=== PATIENT | female | born 1975 | race Caucasian/White ===

== ENCOUNTER 2019-10-21 11:36 | Outpatient (CLI) | payer OTHER ==
--- NOTE | 2019-10-21 13:37 | MMO ---
Bilateral MAMMO Bilat Screen [facility]. CLINICAL HISTORY: Patient is 44 years old and is seen for screening. The patient has no family history of breast cancer. The patient has no personal history of cancer. VIEWS: The views performed were: bilateral craniocaudal with tomosynthesis and bilateral mediolateral oblique with tomosynthesis. This study has been interpreted with the assistance of computer-aided detection. MAMMOGRAM FINDINGS: The breasts are heterogeneously dense, which could obscure a lesion on mammography. There are benign appearing calcifications seen in the left breast. There are no suspicious masses, suspicious calcifications, or new areas of architectural distortion. IMPRESSION: THERE IS NO MAMMOGRAPHIC EVIDENCE OF MALIGNANCY. A ROUTINE FOLLOW-UP MAMMOGRAM IN 1 YEAR IS RECOMMENDED. THE RESULTS OF THIS EXAM WERE SENT TO THE PATIENT. ACR BI-RADS Category 2 - Benign finding MAMMOGRAPHY NOTE: 1. A negative mammogram report should not delay a biopsy if a dominant of clinically suspicious mass is present. 2. Approximately 10% to 15% of breast cancers are not detected by mammography. 3. Adenosis and dense breasts may obscure an underlying neoplasm. Reported by: NAUN MARES MD Electonically Signed: [id number]
== END 2019-10-21 11:37 | disposition home or self-care (01) ==
LOC: BICMAMMO 11:36
PROVIDERS: ATTEND Physician Assistant
DX: Z12.31 Encounter for screening mammogram for malignant neoplasm of breast (principal)
CPT/HCPCS: 77063; 77067

== ENCOUNTER 2020-12-26 13:08 | Observation (INO) | payer BC ==
[2020-12-26] MEDS ORDERED: Lorazepam 2 MG/ML VIAL ONE (16:12)
[2020-12-26] MEDS ORDERED: Senokot S 8.6-50 MG TAB PO PRN (17:43)
[2020-12-26] MEDS ORDERED: ALPRAZolam 0.25 MG TAB PO PRN (17:47)
--- NOTE | 2020-12-26 18:07 | PDOC.HHP ---
Hospitalist ZAYNAB Anxiety/Stress/OD History of Present Illness: 45 yr old female with history of HTN, anxiety was taken to [place] ED today for an intentional OD of her RX medications. She reports taking 60 pills of lisinopril 5mg and 50 of Zoloft 50mg at 0900 this morning. Complains of nausea and some "chest tightness." No vomiting. She was trying to harm her self. She had a previous overdose when she was a teenager but none since. She has had much stress recently with her . She was given IV fluids, Poison control was contacted and she requires at least 6 hours of observation. She was sent to [facility] in [place] for further monitoring and [facility] consult. She experienced some urinary retention while in the ED in [place] likely anticholinergic effect from Zoloft and they placed a self after multiple attempts to void were unsuccessful and bladder scan showed over 800ml in her bladder. She was persistently tachycardic while in the ED and will need continued observation, IV fluids until her tachycardia improves. She will need to be medically cleared. Allergies/Adverse Reactions: Allergy/AdvReac Type Severity Reaction Status Date / Time No Allergy Information Allergy Unverified 12/26/20 17:47 Available Comments: Lisinopril 5mg po daily Zoloft 50mg po daily "New med" ... to help with anxiety but she cannot remember the name Past History: HTN, depression, anxiety Hospitalist HPI ROS Constitutional: denies: fever, chills, sweats, weakness, malaise, other Eyes: denies: pain, vision change, conjunctivae inflammation, eyelid inflammation, redness, other ENT: denies: ear pain, ear discharge, nose pain, nose discharge, nose congestion, mouth pain, mouth swelling, throat pain, throat swelling, other Respiratory: denies: cough, dry, shortness of breath, hemoptysis, SOB with excertion, pleuritic pain, sputum, wheezing, other Cardiovascular: reports: palpitations Gastrointestinal: reports: nausea Genitourinary: reports: retention Musculoskeletal: denies: neck pain, shoulder pain, arm pain, back pain, hand pain, leg pain, foot pain, other Skin: denies: rash, lesions, saurav, bruising, other Hospitalist Exam Vitals: 130/75, P127 RR20 PO2 100 RA T 98.2 General Appearance: awake alert Eye: negative: PERRL, anicteric sclera, scleral icterus ENT: normocephalic atraumatic, dry oral mucosa Neck: negative: supple, symmetric, no JVD, no thyromegaly, no lymphadenopathy, no carotid bruit, JVD Heart: RRR, normal peripheral pulses Heart - other findings: tachycardic Respiratory: CTAB, normal chest expansion Gastrointestinal: soft, non-tender Extremities: no cyanosis Skin: normal turgor Neurological: cranial nerve grossly intact Musculoskeletal: normal tone, normal strength, diffuse muscle atrophy Psychiatric: normal affect, A&O x 3, flat affect Psychiatric - other findings: Appear anxious; tearful Hospitalist H&P A/P (1) Hypertension Code(s): I10 - ESSENTIAL (PRIMARY) HYPERTENSION Status: Chronic (2) Anxiety Code(s): F41.9 - ANXIETY DISORDER, UNSPECIFIED Status: Chronic (3) Suicidal ideation Code(s): R45.851 - SUICIDAL IDEATIONS Status: Acute (4) Overdose by acetaminophen Code(s): T39.1X1A - POISONING BY 4-AMINOPHENOL DERIVATIVES, ACCIDENTAL, INIT Status: Acute (5) Overdose Code(s): T50.901A - POISONING BY UNSP DRUG/MEDS/BIOL SUBST, ACCIDENTAL, INIT Status: Acute Qualifiers: Encounter type: initial encounter Injury intent: intentional self-harm Qualified Code(s): T50.902A - Poisoning by unspecified drugs, medicaments and biological substances, intentional self-harm, initial encounter Plan: #OD of RX medications (lisinopril and Zoloft) with suicidal ideations #Tachycardia #Urinary retention likely from anticholinergic effects from zoloft - Self for now -IV NS 100ml/hr - Xanax 0.25mg po QID PRN/ ASE protocol - [facility] once medically cleared # History of HTN and anxiety Will hold her home meds for now PRN HTN meds as needed PUD and DVT tx started Case discussed with Dr. Noble
[2020-12-26 19:33] VITALS: BMI 23.8
[2020-12-26] MEDS ORDERED: Acetaminophen 500 MG TAB PO SCH (21:15)
[2020-12-26] MEDS: Famotidine 20 MG TAB PO SCH (21:49)
[2020-12-27] MEDS: Sodium Chloride 0.9% 1,000 ML IV SCH ×3 (01:42→14:16)
[2020-12-27 04:28] LABS: SARS-CoV-2 PCR by NAA Not Detected (NotDetected)
[2020-12-27 04:45] LABS: #Basophils 0.1 thou/uL (0.0-0.2); #Eosinphils 0.1 thou/uL (0.0-0.7); #Lymphocytes 2.6 thou/uL (1.20-3.40); #Monocytes 1.2 thou/uL (0.11-0.59); #Neutrophils 5.3 thou/uL (1.40-6.50); %Basophils 1.3 % (0.0-1.0); %Eosinophils 0.9 % (0.0-10.0); %Lymphocytes 27.7 % (21.0-51.0); %Monocytes 13.1 % (0.0-10.0); %Neutrophils 57.1 % (42.0-75.0); Hemoglobin 12.3 g/dL (12.0-16.0); Mean Corpuscular HGB CONC 32.9 g/dL (32.0-36.0); Mean Corpuscular Hemoglobin 30.6 pg (27.0-31.0); Mean Platelet Volume 7.7 fL (7.4-10.4); Platelet Count 303 thou/uL (130-400); RBC Distribution Width 11.9 % (11.5-14.5); Red Blood Cell (RBC) Count 4.04 mill/uL (4.20-5.40); White Blood Cell (WBC) Count 9.2 thou/uL (4.8-10.8)
[2020-12-27 05:07] LABS: ALT (SGPT) 16 U/L (8-55); AST (SGOT) 17 U/L (5-34); Albumin 3.6 g/dL (3.5-5.0); Alkaline Phosphatase 43 U/L (40-110); Anion Gap 13 mmol/L (10-20); BUN (Urea Nitrogen) 5 mg/dL (7.0-18.7); Bilirubin, Total 0.3 mg/dL (0.2-1.2); Calc. Creatinine Clearance 118 mL/min (70-130); Calcium 8.4 mg/dL (7.8-10.44); Carbon Dioxide 23 mmol/L (22-29); Chloride 110 mmol/L (98-107); Globulin 2.8 g/dL (2.4-3.5); Glucose 97 mg/dL (70-105); Potassium 3.9 mmol/L (3.5-5.1); Protein, Total 6.4 g/dL (6.0-8.3); Sodium 142 mmol/L (136-145)
[2020-12-27] MEDS: Famotidine 20 MG TAB PO SCH (08:50)
[2020-12-27] MEDS: Acetaminophen 325 MG TAB PO PRN ×2 (08:52→14:11)
[2020-12-27 09:11] LABS: Troponin I Less than 0.010 ng/mL (< 0.028)
--- NOTE | 2020-12-27 10:23 | PDOC.HOSPP ---
- Subjective Encounter Date: 12/27/20 Encounter Time: 08:00 Subjective: Patient examined today; HR has improved, c/o of chest pain and a headache. Otherwise, feels okay. Requesting a shower. - Objective Vital Signs & Weight: Vital Signs (12 hours) Temp Pulse Resp BP BP Pulse Ox 12/27/20 07:47 98.1 F 104 H 24 H 123/58 L 100 12/27/20 04:00 99 F 105 H 22 H 118/58 L 99 12/27/20 00:20 98.3 F 18 117/57 L 96 Weight Weight 68.946 kg I&O: 12/26/20 12/27/20 12/28/20 06:59 06:59 06:59 Intake Total 2750 Output Total 3350 Balance -600 Result Diagrams: 12/27/20 03:49 12/27/20 03:49 Hospitalist ROS - Review of Systems Constitutional: denies: fever, chills, sweats, weakness, malaise, other Eyes: denies: pain, vision change, conjunctivae inflammation, eyelid inflammation, redness, other ENT: denies: ear pain, ear discharge, nose pain, nose discharge, nose congestion, mouth pain, mouth swelling, throat pain, throat swelling, other Cardiovascular: reports: chest pain, palpitations Gastrointestinal: reports: nausea Genitourinary: denies: dysuria, frequency, incontinence, hematuria, retention, other Musculoskeletal: denies: neck pain, shoulder pain, arm pain, back pain, hand pain, leg pain, foot pain, other Skin: denies: rash, lesions, saurav, bruising, other Other: Patient has a headache today; reports a history of migraines - Medication Medications: Active Medications Generic Name Dose Route Start Last Admin Trade Name Freq PRN Reason Stop Dose Admin Acetaminophen 650 mg 12/27/20 07:55 12/27/20 08:52 Acetaminophen 325 Mg Tab PO 650 mg Q4H PRN Administration Headache/Fever or Mild Pain Famotidine 20 mg 12/26/20 21:00 12/27/20 08:50 Famotidine 20 Mg Tab PO 20 mg BID DOLORES Administration Sodium Chloride 1,000 mls @ 100 mls/hr 12/26/20 17:45 12/27/20 01:42 Normal Saline 0.9% IV 1,000 mls .Q10H DOLORES Administration Hospitalist Exam Vitals: Vital Signs (12 hours) Temp Pulse Resp BP BP Pulse Ox 12/27/20 07:47 98.1 F 104 H 24 H 123/58 L 100 12/27/20 04:00 99 F 105 H 22 H 118/58 L 99 12/27/20 00:20 98.3 F 18 117/57 L 96 Weight Weight 68.946 kg General Appearance: NAD, awake alert Eye: PERRL, anicteric sclera ENT: normocephalic atraumatic, dry oral mucosa Neck: supple, no lymphadenopathy Heart: normal peripheral pulses Heart - other findings: tachycardic Respiratory: CTAB, no wheezes Gastrointestinal: soft, non-tender Extremities: no edema Skin: normal turgor Neurological: cranial nerve grossly intact Musculoskeletal: normal tone, normal strength Psychiatric: A&O x 3 Hosp A/P (1) Hypertension Code(s): I10 - ESSENTIAL (PRIMARY) HYPERTENSION Status: Chronic (2) Anxiety Code(s): F41.9 - ANXIETY DISORDER, UNSPECIFIED Status: Chronic (3) Suicidal ideation Code(s): R45.851 - SUICIDAL IDEATIONS Status: Acute (4) Overdose Code(s): T50.901A - POISONING BY UNSP DRUG/MEDS/BIOL SUBST, ACCIDENTAL, INIT Status: Acute Qualifiers: Encounter type: initial encounter Injury intent: intentional self-harm Qualified Code(s): T50.902A - Poisoning by unspecified drugs, medicaments and biological substances, intentional self-harm, initial encounter - Plan Plan: #OD of RX medications (lisinopril and Zoloft) with suicidal ideations #Tachycardia - improved - fluids #Urinary retention likely from anticholinergic effects from zoloft - [place] for now, will dc today with bladder scan in 4 hours -IV NS 100ml/hr will continue - Xanax 0.25mg po QID PRN/ ASE protocol - [facility] - May shower - [facility] once medically cleared #Chest pain EKG and troponin x2 today # History of HTN and anxiety see above Will hold her home meds for now PRN HTN meds as needed PUD and DVT tx started Case discussed with Dr. Noble
[2020-12-27 12:48] LABS: Troponin I Less than 0.010 ng/mL (< 0.028)
[2020-12-27 17:15] VITALS: BP 114/58; TEMP 97.5
--- NOTE | 2020-12-27 18:14 | PDOC.DS.DS ---
Provider Date of Admission: 12/26/20 16:45 Date of Discharge: 12/27/20 Admitting Provider: BERNARDO Deleon Primary Care Physician: ALFIE Brooks Course Hospital Course: 45 yr old female with history of HTN, anxiety was taken to [place] ED today for an intentional OD of her RX medications. She reports taking 60 pills of lisinopril 5mg and 50 of Zoloft 50mg at 0900 this morning. Complains of nausea and some "chest tightness." No vomiting. She was trying to harm her self. She had a previous overdose when she was a teenager but none since. She has had much stress recently with her . She was given IV fluids, Poison control was contacted and she requires at least 6 hours of observation. She was sent to [facility] in [place] for further monitoring and [facility] consult. She experienced some urinary retention while in the ED in [place] likely anticholinergic effect from Zoloft and they placed a self after multiple attempts to void were unsuccessful and bladder scan showed over 800ml in her bladder. She was persistently tachycardic while in the ED and will need continued observation, IV fluids until her tachycardia improves. She had fluids overnight, her self was dc'd and she has been able to void on her own. Vital signs have improved. Lab work continues to be WNL. She was medically cleared and [facility] was consulted. Patient's mom in the room with the patient and it was agreed that patient will leave with a safety plan and go home with her mother. She told MR that she plans to separate from her as he is the main cause of her anxiety and suicidal ideations, which she states she does not have today. She will be discharged home, with a safety plan. This was verified by this hospitalist [employer] with patient, mother and MR rep. She has been instructed to follow up with a PCP in 7-10 days. They will need to restart her medications when they deem appropriate. Plan discussed with Dr. Noble who agrees. Lab Results: 12/27/20 03:49 12/27/20 03:49 Abnormal Lab Results - Last 48 hrs 12/27/20 03:49: RBC 4.04 L, Monocytes % 13.1 H, Basophils % 1.3 H, Monocytes # 1.2 H 12/27/20 03:49: Chloride 110 H, BUN 5 L Vitals: Vital Signs (12 hours) Temp Pulse Resp BP BP Pulse Ox 12/27/20 16:15 97.5 F L 87 18 114/58 L 96 12/27/20 11:15 97.8 F 92 18 111/58 L 96 12/27/20 07:47 98.1 F 104 H 24 H 123/58 L 100 Weight Weight 68.946 kg Physical Exam: The patient was seen and examined on the day of discharge. General Appearance: NAD, awake alert Eye: PERRL ENT: normocephalic atraumatic Respiratory: CTAB Cardiovascular: RRR, normal peripheral pulses Gastrointestinal: soft, non-tender Neurological: cranial nerve grossly intact Musculoskeletal: normal strength PSYCH: A&O x 3 Problem Time Spent in discharge related activities (mins): 30 (1) Hypertension Code(s): I10 - ESSENTIAL (PRIMARY) HYPERTENSION Status: Chronic (2) Anxiety Code(s): F41.9 - ANXIETY DISORDER, UNSPECIFIED Status: Chronic (3) Suicidal ideation Code(s): R45.851 - SUICIDAL IDEATIONS Status: Resolved (4) Overdose Code(s): T50.901A - POISONING BY UNSP DRUG/MEDS/BIOL SUBST, ACCIDENTAL, INIT Status: Acute Qualifiers: Encounter type: initial encounter Injury intent: intentional self-harm Qualified Code(s): T50.902A - Poisoning by unspecified drugs, medicaments and biological substances, intentional self-harm, initial encounter Plan Home Medications: Medication Instructions Recorded Confirmed Type Lisinopril [Zestril] 5 mg PO DAILY 12/26/20 12/26/20 History Sertraline HCl [Zoloft] 100 mg PO DAILY 12/26/20 12/26/20 History Allergies: No Known Allergies Allergy (Unverified 12/26/20 20:12) Discharge Instructions:: Please follow up with a PCP within the next 7-10 days to talk about restarting your hypertension and anxiety medications. Please go to the ED or call someone if you have thoughts of harming yourself. Activity:: Activity as Tolerated Nourishment:: Heart Healthy Diet Referrals: Amna Milton PA [Primary Care Provider] - Disposition: HOME
== END 2020-12-27 19:30 | disposition home or self-care (01) ==
LOC: ERS 13:08 → EEVIPCON 16:45 → 2NO 16:45
PROVIDERS: ADMIT Nurse Practitioner Family; ATTEND Internal Medicine
DX: T46.4X2A Poisoning by angiotensin-converting-enzyme inhibitors, intentional self-harm, initial encounter (principal); T43.222A Poisoning by selective serotonin reuptake inhibitors, intentional self-harm, initial encounter; R33.0 Drug induced retention of urine; R45.851 Suicidal ideations; R07.89 Other chest pain; R11.0 Nausea; F41.9 Anxiety disorder, unspecified; F32.9 Major depressive disorder, single episode, unspecified; I10 Essential (primary) hypertension; Z79.899 Other long term (current) drug therapy; Z91.5 Personal history of self-harm; Z20.822 Contact with and (suspected) exposure to COVID-19
CPT/HCPCS: 36415; 51798; 80053; 84484; 85025; 87635; 93005; 93010; 96374; G0378; J2060; U0003; U0005

== ENCOUNTER 2023-11-20 07:52 | Outpatient (CLI) | payer BC, OTHER | END 2023-11-20 07:53 | disposition home or self-care (01) | LOC: BICMAMMO 07:52 | PROVIDERS: ATTEND Physician Assistant | DX: Z12.31 Encounter for screening mammogram for malignant neoplasm of breast (principal) | CPT/HCPCS: 77063; 77067 ==